=== PATIENT | female | born 1965 | race African-American/Black ===

== ENCOUNTER → 2016-05-27 | Outpatient (CLI) | payer OTHER ==
[~2016-05-27] MED LIST: COREG3.125 MG PO; LEVEMIR100 U/ML SUBQ; LIPITOR20 MG PO; LISINOPRIL20 MG PO
--- NOTE | ~2016-05-27 | MY11 ---
[facility] A Service of [facility] RADIOLOGY TEXT RESULTS PATIENT: CARLOS CABRAL LOCATION: [facility] : 69 UNIT #: [id number] AGE: [address]: Yuliet Poole APRN SEX: F ORDER DR: [id number] [facility] [address] [place], [place] [address] [id number] O MR#: [id number] Acc #: [id number] NAME: CARLOS CABRAL : 1965 SEX: F STUDY DATE/TIME: 05/27/2016 11:10 UNIT: [facility] ROOM: STUDY DESCRIPTION: MY Mammogram Screening Dig Giovanni Attending Physician: Yuliet Poole Aprn Referring Physician: Yuliet Poole Aprn Ordering Physician: Yuliet Poole Aprn Primary Care Physician: Allison Ramirez M.D. MEDICAL IMAGING REPORT This report is preliminary unless electronic signature is present EXAM Digital screening mammogram 05/27/2016 HISTORY 50-year-old woman. No risk elevation. Annual screen. COMPARISON 09/18/2009, 05/26/2015 FINDINGS Digital imaging of each breast was completed utilizing a two-view examination of each breast in craniocaudal and mediolateral-oblique projections. Review and interpretation of digital mammograms include a second review in conjunction with FDA-approved CAD device. There is a normal parenchymal presentation bilaterally consistent with the patient's age. There are no breast masses imaged and no parenchymal asymmetry is visualized. There are no suspicious microcalcifications and I see no focal architectural disturbance. IMPRESSION Negative screening digital mammogram. One-year followup recommended. Patients over the age of 40 are entered into a reminder system with target due date for the next mammogram. A result letter will also be sent to the patient. BIRADS: 1 Negative Dictated by... Harley Sky M.D. THIS IS AN ELECTRONICALLY VERIFIED REPORT [facility] A Service of [facility] RADIOLOGY TEXT RESULTS PATIENT: CARLOS CABRAL LOCATION: [facility] : 69 UNIT #: [id number] AGE: [address]: Yuliet Poole APRN SEX: F ORDER DR: Harley Sky M.D. at 05/27/2016 3:31 PM WILBUR/tj TD: 05/27/2016 15:03 JOB #: [id number] MEDICAL IMAGING REPORT COPY
== END | disposition home or self-care (01) ==
LOC: CWCC 10:49
DX: Z12.31 Encounter for screening mammogram for malignant neoplasm of breast (principal)
CPT/HCPCS: G0202